=== PATIENT | female | born 1950 | race Caucasian/White ===

== ENCOUNTER 2019-10-04 13:09 | Emergency (ER) | payer MEDICARE, SELFPAY ==
[2019-10-04 13:32] VITALS: BP 161/83; PULSE 78; RESP 16; TEMP 37; O2SAT 99
--- NOTE | 2019-10-04 14:58 | ED.GENADULT ---
HPI - General Adult General Chief complaint: Upper Respiratory Infection Stated complaint: sore throat/steward Time Seen by Provider: 10/04/19 14:58 Source: patient and RN notes reviewed Mode of arrival: ambulatory Limitations: no limitations History of Present Illness HPI narrative: 69-year-old female presents with complaints of sore throat, loss of taste, head congestion, and intermittent headache (not the worst of her life) for the past 3 days. Advil congestion with little relief. No high fevers, drooling, neck or throat swelling. Pain is bilateral. Hurts to swallow. Exacerbation factors consist of swallowing, eating, and drinking. No rhinorrhea. Nasal congestion. No voice change. No nausea or vomiting, or abdominal pain. Tolerating liquids well. Denies chills, dyspnea, difficulty swallowing, jaw pain, dental pain, facial pain, foreign body sensation, and rash. Remains active. The patient reports she have not been diagnosed with COVID-19. The patient reports she is not waiting for the results of a COVID-19 lab test. The patient reports she do not have fever, chills, weakness, fatigue, myalgia, or facial swelling. The patient reports she do not have a new or worsening cough or shortness of breath. Denies chest pain. The patient reports she do not have any rhinorrhea, abdominal pain, and diarrhea. Denies recent traveling. Denies concerns for COVID-19 or exposures. At this time, patient is not suspected of having COVID-19. Some parts of this dictation were generated by voice recognition software and may contain typographical and/or grammatical inaccuracies. Related Data Home Medications Medication Instructions Recorded Confirmed oxybutynin chloride 5 mg 5 mg PO DAILY 01/02/19 10/04/19 tablet,extended release 24 hr Allergies Allergy/AdvReac Type Severity Reaction Status Date / Time Penicillins Allergy Unknown Rash Verified 10/04/19 14:28 Review of Systems Review of Systems: Narrative: CONSTITUTIONAL: Denies fever, chills, sweats. EYES: Denies visual changes, redness, discharge. ENT: Denies rhinorrhea, otalgia. Complains of sore throat, congestion, loss of taste. CARDIOVASCULAR: Denies chest pain, palpitations, edema. RESPIRATORY: Denies dyspnea, wheezing, cough. GASTROINTESTINAL: Denies abdominal pain, nausea, vomiting, diarrhea. GENITOURINARY: Denies dysuria, hematuria, abnormal discharge. SKIN: Denies rash or itching. MUSCULOSKELETAL: Denies acute back pain, joint pain, or myalgia. NEUROLOGIC: Denies numbness or focal weakness. PSYCHIATRIC: Denies anxiety or depression. All systems reviewed & are unremarkable except as noted in HPI and below. [facility] Past Medical History Medical History (Updated 10/04/19 @ 16:04 by RICARDO Arellano) Hyperlipidemia, unspecified Menopause OAB (overactive bladder) 10/09/2018 Osteoporosis Vitamin D deficiency Surgical History Surgical History H/O heart surgery Family History Family History (Updated 10/04/19 @ 16:05 by RICARDO Arellano) Father Carcinoma of colon Mother Family history of malignant neoplasm of breast in first degree relative Social History Social History (Updated 10/04/19 @ 16:05 by RICARDO Arellano) Smoking status: Never smoker Second hand tobacco smoke exposure: No Alcohol intake: current Substance use: never Substance use type: does not use Occupation/Education: retired Gender identity (if verbalized by the patient): Female Comments At time of signature, agree with nurse past medical, surgical, social, and family history. There is no relevant family history pertinent to the presenting complaint. Exam Narrative: Exam Narrative: GENERAL: This is a well-nourished, well-developed patient, in no apparent distress. Speaks in full sentences without deficits and ambulates with steady gait without dyspnea. HEAD: normocephalic,
[2019-10-04 15:28] VITALS: BP 152/89
== END 2019-10-04 15:28 | disposition home or self-care (01) ==
PROVIDERS: Emergency Provider Nurse Practitioner Family; PCP Family Medicine
DX: J01.90 Acute sinusitis, unspecified (principal); J02.9 Acute pharyngitis, unspecified; Z20.828 Contact with and (suspected) exposure to other viral communicable diseases; E78.5 Hyperlipidemia, unspecified; M81.0 Age-related osteoporosis without current pathological fracture
CPT/HCPCS: 87081; 87804; 87880; 99213; G0463

== ENCOUNTER 2019-10-05 06:47 | Outpatient (NON) | payer MEDICARE, SELFPAY ==
[2019-10-05 19:35] LABS: SARS-CoV-2 RNA PCR Positive
== END 2019-10-05 06:48 ==
PROVIDERS: PCP Family Medicine; Visit Provider Nurse Practitioner Family
DX: J02.9 Acute pharyngitis, unspecified (principal); R51 Headache; U07.1 COVID-19
CPT/HCPCS: 87635; C9803; U0003

== ENCOUNTER → 2020-05-06 00:12 | Outpatient (CLI) | payer MEDICARE, SELFPAY ==
[2020-05-06 17:44] LABS: SARS-CoV-2 RNA PCR Negative
== END ==
PROVIDERS: PCP Obstetrics & Gynecology; Visit Provider Internal Medicine Gastroenterology
DX: Z01.812 Encounter for preprocedural laboratory examination (principal); Z20.822 Contact with and (suspected) exposure to COVID-19
CPT/HCPCS: C9803; U0003; U0005

== ENCOUNTER 2020-05-09 01:05 | Day surgery (SDC) | payer MEDICARE, SELFPAY ==
[2020-04-25 13:42] VITALS: BMI 22.6
[2020-05-09 06:52] VITALS: BP 147/59; PULSE 85; RESP 18; TEMP 36.4; O2SAT 98; BMI 22.0
[2020-05-09] MEDS: LACTATED RINGERS 1,000 ML 150 ML IV CONT (07:01)
--- NOTE | 2020-05-09 07:31 | WPDANESEPPF ---
Anes - Initial Pre Proc Eval Procedure: Operation Date: 05/09/20 08:30 Proposed Procedures p Colonoscopy - Landon Mcclure MD Date/Time: 05/09/20 07:31 Surgeon: Landon Mcclure MD Pre Op Diagnosis: Blood In Stool Patient Data Age: 69 Gender: F Height: 5 ft 2 in Weight: 54.7 kg Last Vital Signs Temp 97.6 F 05/09/20 06:52 Pulse 85 05/09/20 06:52 Resp 18 05/09/20 06:52 BP 147/59 H 05/09/20 06:52 Pulse Ox 98 05/09/20 06:52 Allergies Allergy/AdvReac Type Severity Reaction Status Date / Time Penicillins Allergy Unknown Rash Verified 05/09/20 06:50 Home Medications Medication Instructions Recorded Confirmed Type oxybutynin chloride 5 mg 10 mg PO DAILY 01/02/19 05/09/20 History tablet,extended release 24 hr fluticasone propionate [Allergy 1 spray NASAL BID #16 ml 10/04/19 04/25/20 Rx Relief (fluticasone)] loratadine [Claritin] 10 mg PO DAILY 30 Days #30 tablet 10/04/19 04/25/20 Rx sodium,potassium,mag sulfates 17.5 See Rx Instructions PO .COMPLEX 03/31/20 Rx gram-3.13 gram-1.6 gram oral soln #354 ml Patient hx anesthesia problems: none Family hx anesthesia problems: none PMFSH Past Medical History Medical History (Updated 10/05/19 @ 00:00 by Background Datrinity) Hyperlipidemia, unspecified Menopause OAB (overactive bladder) 10/09/2018 Osteoporosis Vitamin D deficiency Surgical History Surgical History H/O heart surgery Family History Family History (Updated 10/04/19 @ 16:05 by RICARDO Arellano) Father Carcinoma of colon Mother Family history of malignant neoplasm of breast in first degree relative Social History Social History (Updated 10/04/19 @ 16:05 by RICARDO Arellano) Smoking status: Never smoker Second hand tobacco smoke exposure: No Alcohol intake: current Substance use: never Substance use type: does not use Living arrangements: with family Gender identity (if verbalized by the patient): Female Sexual Orientation (if Verbalized by the Patient): Straight or Heterosexual Spiritual care concerns: No Anes - Eval Final PreProcedure Day of Procedure 05/09/20 07:31 Patient weight: normal Heart: regular rate and rhythm Lungs: clear to auscultation Airway: Mallampati scale class II Neurological: alert and oriented Last oral intake: >/= 8 hours ASA classification: II Emergent: no Anesthetic plan: proceed Anesthesia type and monitoring: general GIVS and standard monitoring Informed Consent: The patient's anesthetic plan and its attendant risks and benefits were discussed with the patient/family/POA. Questions were solicited and answers provided to the satisfaction of the patient/family/POA.
--- NOTE | 2020-05-09 07:53 | PM.HPGS ---
History of Present Illness History of Present Illness Consent: Risks, benefits, and alternatives have been discussed and questions answered. Patient agrees to proceed with procedure. Chief complaint: Blood In Stool Narrative: Jory Herrera is a 69 year old female here for first screening colonoscopy Review of Systems Constitutional: Constitutional: Denies headache(s) and Denies weakness Eyes: Eyes: Denies blurry vision ENT: Reports Normal hearing present, Denies headache(s) and Denies neck pain Cardiovascular: Cardiovascular: Denies chest pain and Denies dyspnea Respiratory: Respiratory: Denies dyspnea Gastrointestinal: Gastrointestinal: Reports no additional gastrointestinal complaints Genitourinary: Genitourinary: Denies dysuria Musculoskeletal: Musculoskeletal: Denies neck pain Integumentary/Breasts: Skin/Breast: Denies dry skin Neurologic: Reports Normal hearing present, Denies headache(s) and Denies weakness Psychiatric: Psychiatric: Denies anxiety Endocrine: Endocrine: Denies change in body appearance Hematologic/Lymphatic: Hematologic/Lymphatic: Denies easy bleeding Allergic/Immunologic: Allergic/Immunologic: Denies urticaria PMFSH Past Medical History Medical History (Updated 05/09/20 @ 07:54 by Landon Mcclure MD) Colon cancer screening Hyperlipidemia, unspecified Menopause OAB (overactive bladder) 10/09/2018 Osteoporosis Vitamin D deficiency Surgical History Surgical History H/O heart surgery Family History Family History (Updated 10/04/19 @ 16:05 by RICARDO Arellano) Father Carcinoma of colon Mother Family history of malignant neoplasm of breast in first degree relative Social History Social History (Updated 10/04/19 @ 16:05 by RICARDO Arellano) Smoking status: Never smoker Second hand tobacco smoke exposure: No Alcohol intake: current Substance use: never Substance use type: does not use Living arrangements: with family Gender identity (if verbalized by the patient): Female Sexual Orientation (if Verbalized by the Patient): Straight or Heterosexual Spiritual care concerns: No Meds Home Medications and Allergies Home Medications Medication Instructions Recorded Confirmed Type oxybutynin chloride 5 mg 10 mg PO DAILY 01/02/19 05/09/20 History tablet,extended release 24 hr fluticasone propionate [Allergy 1 spray NASAL BID #16 ml 10/04/19 04/25/20 Rx Relief (fluticasone)] loratadine [Claritin] 10 mg PO DAILY 30 Days #30 tablet 10/04/19 04/25/20 Rx sodium,potassium,mag sulfates 17.5 See Rx Instructions PO .COMPLEX 03/31/20 Rx gram-3.13 gram-1.6 gram oral soln #354 ml Allergies Allergy/AdvReac Type Severity Reaction Status Date / Time Penicillins Allergy Unknown Rash Verified 05/09/20 06:50 Vital Signs Vital Signs - 24 hr 05/09/20 06:52 Temperature 97.6 F Pulse Rate 85 Respiratory Rate 18 Blood Pressure 147/59 H Pulse Oximetry 98 Exam Const: General: comfortable and no acute distress HENMT: General nose exam: Normal nares present Eyes: General: appearance normal, both eyes and all related structures Neck: Neck: no JVD Resp: Auscultation: clear to auscultation bilaterally Cardio: Rate: regular rate Rhythm: regular rhythm GI: Inspection: non-distended GI Palp: Yes Soft to palpation Skin: General skin exam: normal color Neuro: General: gait normal Speech: normal speech Extrem: General: normal to inspection Psych: Mental Status: mental status grossly normal Assessment and Plan Assessment and plan (1) Colon cancer screening: Code(s): Z12.11 - Encounter for screening for malignant neoplasm of colon Status: Acute Assessment and Plan: proceed with colonoscopy
[2020-05-09 08:06] VITALS: BP 126/75; PULSE 81; RESP 16; O2SAT 98
[2020-05-09 08:16] VITALS: BP 124/71; PULSE 80; RESP 17; O2SAT 97
[2020-05-09 08:26] VITALS: BP 126/74; PULSE 80; RESP 18; O2SAT 96
[2020-05-09 08:36] VITALS: BP 145/79; PULSE 67; RESP 19; O2SAT 99
== END 2020-05-09 08:39 | disposition home or self-care (01) ==
PROVIDERS: PCP Obstetrics & Gynecology; Visit Provider Internal Medicine Gastroenterology
PROC: 0DJD8ZZ Inspection of Lower Intestinal Tract, Via Natural or Artificial Opening Endoscopic (ICD-10-PCS; CPT 45378; principal; 2020-05-09 08:30)
DX: Z12.11 Encounter for screening for malignant neoplasm of colon (principal); D12.5 Benign neoplasm of sigmoid colon; D12.3 Benign neoplasm of transverse colon; K92.1 Melena; K64.8 Other hemorrhoids; N32.81 Overactive bladder; K64.4 Residual hemorrhoidal skin tags; M81.0 Age-related osteoporosis without current pathological fracture; E55.9 Vitamin D deficiency, unspecified; E78.5 Hyperlipidemia, unspecified
CPT/HCPCS: 45385; 45380; 88305; J2704; J7120

== ENCOUNTER 2021-02-11 08:41 | Emergency (ER) | payer MEDICARE, SELFPAY ==
--- NOTE | ~2021-02-11 | CT_ITS ---
EXAMINATION: CT brain wo con DATE: 02/11/2021 10:50 INDICATION: Dizziness. Head pressure. TECHNIQUE: Computed tomography (CT) of the head was performed without intravenous contrast. The mA wa s adjusted according to patient size. Iterative reconstruction technique was employed. The dose-lengt h product was 529.67 mGy-cm. COMPARISON: None FINDINGS: There is no intracranial hemorrhage, acute infarction, or abnormal intracranial mass lesion . The ventricles are normal in size. The orbits are normal. There is mild mucosal thickening in the p aranasal sinuses. The mastoid air cells are normal. IMPRESSION: 1. Normal brain. Reviewed, dictated and finalized at location A. R WATER HEATER INSTALLER IMPRESSION: 1. Normal brain.
--- NOTE | ~2021-02-11 | XR_ITS ---
EXAMINATION: XR chest 2V DATE: 02/11/2021 10:53 INDICATION: Dizziness. Hypertension. TECHNIQUE: Frontal and lateral views of the chest were obtained. COMPARISON: None. FINDINGS: There is mild atelectasis in right lower lung zone. Calcified pulmonary nodules are consist ent with old granulomatous disease. No pleural effusion or pneumothorax. The heart size is normal. Me shauna sternotomy wires are noted. IMPRESSION: 1. Mild atelectasis in right lower lung zone. Reviewed, dictated and finalized at location A. HASING/RECEIVING
[2021-02-11 08:48] VITALS: BP 183/76; PULSE 84; RESP 16; TEMP 36.6; O2SAT 100
--- NOTE | 2021-02-11 10:11 | ECG_ITS ---
Measurements Intervals [place] Rate: 80 P: 73 MO: 229 QRS: -36 QRSD: 130 T: 3 QT: 434 QTc: 503 Interpretive Statements SINUS RHYTHM WITH FIRST DEGREE AV BLOCK LEFT AXIS DEVIATION RIGHT BUNDLE BRANCH BLOCK ABNORMAL ECG Electronically Signed On 02-11-2021 13:30:58 OPHTHALMIC MEDICAL ASSISTANT by Ralph Avila D.O.
--- NOTE | 2021-02-11 10:32 | ED.RECABL ---
HPI - Recheck/Abnormal Lab/Rx General Chief Complaint: Recheck/Abnormal Lab/Rx Stated Complaint: High blood pressure/ dizzy Time Seen by Provider: 02/11/21 10:08 Source: patient Mode of arrival: ambulatory Limitations: no limitations History of Present Illness HPI narrative: This is a 70 year old female that presents to the ER for dizziness. Ongoing for the last week. Reports intermittently upon standing she has dizziness associated with nausea. Also reports mild headaches. Reports due to her symptoms she has been taking her blood pressure the last couple of days and it has been elevated. She does not have known history of hypertension. Although she does report she does not currently have a primary care doctor. Denies chest pain or shortness of breath. Related Data Home Medications Medication Instructions Recorded Confirmed oxybutynin chloride 5 mg 10 mg PO DAILY 01/02/19 05/09/20 tablet,extended release 24 hr Allergies Allergy/AdvReac Type Severity Reaction Status Date / Time Penicillins Allergy Unknown Rash Verified 02/11/21 10:14 Review of Systems Review of Systems: CONSTITUTIONAL: Denies fever EYES: Denies visual changes CARDIOVASCULAR: Denies chest pain or edema. RESPIRATORY: Denies dyspnea. GASTROINTESTINAL: Denies vomiting NEUROLOGIC: Reports headache. Denies numbness, or weakness. All systems reviewed & are unremarkable except as noted in HPI and below PMFSH Past Medical History Medical History (Updated 02/11/21 @ 12:25 by Rena Pink PA-C) Colon cancer screening Hyperlipidemia, unspecified Menopause OAB (overactive bladder) 10/09/2018 Osteoporosis Vitamin D deficiency Surgical History Surgical History H/O heart surgery Family History Family History (Updated 10/04/19 @ 16:05 by RICARDO Arellano) Father Carcinoma of colon Mother Family history of malignant neoplasm of breast in first degree relative Social History Social History (Updated 10/04/19 @ 16:05 by RICARDO Arellano) Smoking status: Never smoker Second hand tobacco smoke exposure: No Alcohol intake: current Alcohol use details: 2 beers consumed weekly Substance use: never Substance use type: does not use Gender identity (if verbalized by the patient): Female Sexual Orientation (if Verbalized by the Patient): Straight or Heterosexual Spiritual care concerns: No Exam Narrative: GENERAL: Well-appearing, well-nourished, and in no acute distress. HEAD: Normocephalic, atraumatic. EYES: PERRLA and EOMI. ENT: Nares clear, no rhinorrhea or epistaxis. Mucous membranes moist. Oropharynx without tonsillar hypertrophy exudate or other lesions. Bilateral TMs pearly garay non-bulging NECK: Supple. No adenopathy or masses. No carotid bruits or JVD CHEST: Clear to auscultation. No respiratory distress. No wheezes rales or rhonchi HEART: Regular rate and rhythm. No murmur heard. Normal peripheral pulses. EXTREMITIES: Normal range of motion. No edema. SKIN: Warm, dry, no rash. NEURO: No focal deficits. Alert and oriented x3. Cranial nerves II through XII grossly intact. Normal [id number] PSYCH: Normal mood and affect Course Consultations Consultation #1: Spoke with Dr. Pereira about patient and work-up. Would like patient started on lisinopril daily and will follow up in clinic Date: 02/11/21 Time: 12:27 Vital Signs Vital signs: Vital Signs Temperature 98 F 02/11/21 08:48 Pulse Rate 84 02/11/21 08:48 Respiratory Rate 16 02/11/21 08:48 Blood Pressure 183/76 H 02/11/21 08:48 Pulse Oximetry 100 02/11/21 08:48 Temperature 98 F 02/11/21 08:48 Pulse Rate 89 02/11/21 10:55 Respiratory Rate 13 02/11/21 10:55 Blood Pressure 174/87 H 02/11/21 10:55 Pulse Oximetry 98 02/11/21 10:55 MDM - Recheck/Abnormal Lab/Rx MDM Narrative Medical decision making narrative: Patient presents to the [facility]
--- NOTE | 2021-02-11 10:42 | PC.NURSE ---
pt to CT and xray at this time.
[2021-02-11 10:55] VITALS: BP 174/87; PULSE 89; RESP 13; O2SAT 98
[2021-02-11] MEDS: ACETAMINOPHEN 500 MG TABLET 1000 MG PO (10:59)
[2021-02-11] MEDS: LABETALOL HCL INJ 100 MG/20 ML VIAL 20 MG IV PUSH (10:59)
[2021-02-11] MEDS: MECLIZINE HCL 25 MG TABLET PO (11:00)
[2021-02-11 11:06] LABS: Basophils Percent Auto 0.4 % (0.2-1.2); Eosinophils Percent Auto 0.3 % (0-4.4); Hematocrit 47.3 % (37.0-47.0); Hemoglobin 15.7 g/dL (12.0-15.0); Immature Granulocyte Absolute 0.02 K/mm3 (0.00-0.031); Immature Granulocyte Percent A 0.3 % (0-0.5); Lymphocytes Absolute Auto 1.02 K/mm3 (0.9-3.2); Lymphocytes Percent Auto 14.9 % (18.3-44.2); Mean Corpuscular HGB Conc 33.2 g/dl (32-36); Mean Corpuscular Hemoglobin 28.4 pg (26-34); Mean Corpuscular Volume 85.7 fl (80-100); Mean Platelet Volume 10.4 fl (7.4-10.4); Monocytes Absolute Auto 0.3 K/mm3 (0.1-0.6); Monocytes Percent Auto 4.4 % (2.6-8.5); Neutrophils Absolute Auto 5.4 K/mm3 (1.3-6.7); Neutrophils Percent Auto 79.7 % (45.5-73.1); Platelet Count Result 159 k/mm3 (150-375); Red Blood Count 5.52 M/mm3 (4.2-5.4); Red Cell Distribution Width 13.7 % (11.5-14.5); White Blood Count 6.8 K/mm3 (4.5-10.0)
[2021-02-11 11:18] LABS: Anion Gap 9 mmol/L (8-16); Blood Urea Nitrogen 16 mg/dL (7-17); Calcium 9.6 mg/dL (8.4-10.2); Carbon Dioxide 26 mmol/L (22-30); Chloride 104 mmol/L (98-107); Estimated CRCL calculation 60 ml/min; Estimated Glomerular Filt Rate > 60; Glucose 118 mg/dL (65-110); Potassium 3.9 mmol/L (3.4-5.0); Sodium 139 mmol/L (137-145)
[2021-02-11] MEDS: SODIUM CHLORIDE 0.9% IV 500 ML 999 ML IV CONT (11:33)
[2021-02-11 12:25] VITALS: BP 152/78; PULSE 68; RESP 20; O2SAT 99
[2021-02-11 12:44] VITALS: BP 134/70; PULSE 72; RESP 18; O2SAT 96
== END 2021-02-11 12:46 | disposition home or self-care (01) ==
PROVIDERS: Physician Assistant; Emergency Provider Emergency Medicine
DX: I10 Essential (primary) hypertension (principal); E78.5 Hyperlipidemia, unspecified
CPT/HCPCS: 36415; 70450; 71046; 80048; 85025; 93005; 96361; 96374; 99284; A9270; J7040

== ENCOUNTER 2021-08-29 09:53 | Outpatient (CLI) | payer MEDICARE, SELFPAY ==
[2021-08-29 18:43] LABS: Basophils Percent Auto 0.5 % (0.2-1.2); Eosinophils Percent Auto 0.6 % (0-4.4); Hematocrit 46.5 % (37.0-47.0); Hemoglobin 14.7 g/dL (12.0-15.0); Immature Granulocyte Absolute 0.02 K/mm3 (0.00-0.031); Immature Granulocyte Percent A 0.3 % (0-0.5); Lymphocytes Absolute Auto 0.92 K/mm3 (0.9-3.2); Mean Corpuscular HGB Conc 31.6 g/dl (32-36); Mean Corpuscular Hemoglobin 28.3 pg (26-34); Mean Corpuscular Volume 89.6 fl (80-100); Mean Platelet Volume 11.4 fl (7.4-10.4); Monocytes Absolute Auto 0.3 K/mm3 (0.1-0.6); Neutrophils Absolute Auto 5.2 K/mm3 (1.3-6.7); Neutrophils Percent Auto 79.6 % (45.5-73.1); Platelet Count Result 155 k/mm3 (150-375); Red Blood Count 5.19 M/mm3 (4.2-5.4); Red Cell Distribution Width 13.3 % (11.5-14.5); White Blood Count 6.6 K/mm3 (4.5-10.0)
[2021-08-29 18:50] LABS: Alanine Aminotransferase 24 U/L (6-35); Albumin Level 4.7 g/dL (3.5-5.1); Alkaline Phosphatase 75 U/L (38-126); Anion Gap 6 mmol/L (8-16); Aspartate Amino Transferase 32 U/L (14-36); Bilirubin,Total 0.6 mg/dL (0.2-1.3); Blood Urea Nitrogen 16 mg/dL (7-17); Calcium 9.6 mg/dL (8.4-10.2); Carbon Dioxide 31 mmol/L (22-30); Chloride 101 mmol/L (98-107); Cholesterol 195 mg/dL (0-200); Estimated Glomerular Filt Rate > 60; Glucose 112 mg/dL (65-110); HDL Direct 61 mg/dL; Potassium 4.7 mmol/L (3.4-5.0); Sodium 138 mmol/L (137-145); Triglycerides 133 mg/dL (<150)
[2021-08-29 19:01] LABS: LDL Cholesterol Direct 91 mg/dL
[2021-08-29 20:06] LABS: Vitamin D 25 Hydroxy 30.4 ng/mL
== END 2021-08-29 09:54 | disposition home or self-care (01) ==
LOC: ANHGOSHLAB 09:58
PROVIDERS: PCP Family Medicine; Visit Provider Nurse Practitioner
DX: E55.9 Vitamin D deficiency, unspecified (principal); E78.5 Hyperlipidemia, unspecified; I10 Essential (primary) hypertension
CPT/HCPCS: 36415; 80053; 80061; 82306; 85025

== ENCOUNTER 2022-03-20 09:45 | Outpatient (CLI) | payer OTHER, SELFPAY ==
[2022-03-20 19:37] LABS: Alanine Aminotransferase 24 U/L (6-35); Albumin Level 4.5 g/dL (3.5-5.1); Alkaline Phosphatase 60 U/L (38-126); Anion Gap 2 mmol/L (8-16); Aspartate Amino Transferase 40 U/L (14-36); Bilirubin,Total 0.6 mg/dL (0.2-1.3); Blood Urea Nitrogen 20 mg/dL (7-17); Calcium 9.5 mg/dL (8.4-10.2); Carbon Dioxide 31 mmol/L (22-30); Chloride 102 mmol/L (98-107); Cholesterol 224 mg/dL (0-200); Estimated Glomerular Filt Rate > 60; Glucose 99 mg/dL (65-110); HDL Direct 63 mg/dL; Potassium 4.5 mmol/L (3.4-5.0); Sodium 135 mmol/L (137-145); Triglycerides 175 mg/dL (<150)
[2022-03-20 19:48] LABS: LDL Cholesterol Direct 107 mg/dL
[2022-03-20 20:32] LABS: Basophils Percent Auto 0.4 % (0.2-1.2); Eosinophils Absolute Auto 0.1 K/mm3 (0-0.3); Eosinophils Percent Auto 1.1 % (0-4.4); Hematocrit 45.2 % (37.0-47.0); Hemoglobin 14.5 g/dL (12.0-15.0); Immature Granulocyte Absolute 0.01 K/mm3 (0.00-0.031); Immature Granulocyte Percent A 0.2 % (0-0.5); Lymphocytes Absolute Auto 1.08 K/mm3 (0.9-3.2); Lymphocytes Percent Auto 19.1 % (18.3-44.2); Mean Corpuscular HGB Conc 32.1 g/dl (32-36); Mean Corpuscular Hemoglobin 28.7 pg (26-34); Mean Corpuscular Volume 89.3 fl (80-100); Mean Platelet Volume 11.2 fl (7.4-10.4); Monocytes Absolute Auto 0.3 K/mm3 (0.1-0.6); Monocytes Percent Auto 5.3 % (2.6-8.5); Neutrophils Absolute Auto 4.2 K/mm3 (1.3-6.7); Neutrophils Percent Auto 73.9 % (45.5-73.1); Platelet Count Result 164 k/mm3 (150-375); Red Blood Count 5.06 M/mm3 (4.2-5.4); Red Cell Distribution Width 14.2 % (11.5-14.5); White Blood Count 5.7 K/mm3 (4.5-10.0)
== END 2022-03-20 09:46 | disposition home or self-care (01) ==
LOC: ANHGOSHLAB 09:46
PROVIDERS: PCP Family Medicine; Visit Provider Nurse Practitioner
DX: E78.5 Hyperlipidemia, unspecified (principal); I10 Essential (primary) hypertension
CPT/HCPCS: 36415; 80053; 80061; 85025

== ENCOUNTER → 2022-04-10 10:44 | Outpatient (CLI) | payer OTHER, SELFPAY ==
--- NOTE | ~2022-04-10 | DEXA_ITS ---
Bone Density Report Name: FARRAH DARBY Age: 71 Sex: Female Ethnicity: White Date of : 1950 Indication: postmenopausal osteoporosis; Referring Provider: Kavitha Patrick Study: Bone densitometry was performed. Exam Date: April 10, 2022 Accession number: [id number] Bone Density: Region BMD T-score Z-score Classification AP Spine (L1-L4) 0.708 -3.1 -1.0 Osteoporosis Femoral Neck (Left) 0.590 -2.3 -0.6 Osteopenia Total Hip (Left) 0.682 -2.1 -0.7 Osteopenia Femoral Neck (Right) 0.603 -2.2 -0.4 Osteopenia Total Hip (Right) 0.723 -1.8 -0.3 Osteopenia Total Hip Mean 0.703 -2.0 -0.5 Osteopenia World Health Organization criteria for BMD impression classify patients as: Normal (T-score at or above -1.0), Osteopenia (T-score between -1.0 and -2.5), or Osteoporosis (T-score at or below -2.5). 10-year Fracture Risk: FRAX not reported because: Some T-score for Spine Total or Hip Total or Femoral Neck at or below -2.5 Previous Exams: Region Exam Age BMD T-score BMD Change BMD Change Date g/cm2 vs Baseline vs Previous AP Spine(L1-L4) 04/10/2022 71 0.708 -3.1 -0.014 0.045* 06/20/2018 67 0.663 -3.5 -0.059* -0.059* 03/24/2007 56 0.721 -3.0 Total Hip(Left) 04/10/2022 71 0.682 -2.1 0.023 0.013 06/20/2018 67 0.669 -2.2 0.009 0.009 03/24/2007 56 0.659 -2.3 Total Hip(Right) 04/10/2022 71 0.723 -1.8 0.014 0.009 06/20/2018 67 0.714 -1.9 0.005 0.005 03/24/2007 56 0.708 -1.9 *Denotes significance at 95% confidence level, LSC for AP Spine = 0.022 g/cm2, LSC for Total Hip = 0.027 g/cm2 Clinical Information Provided by Patient: Has used the following medications: Fosamax (i.e. alendronate) Patient maximum height was 61 Menopause Age: 52 Drinks caffeinated beverages Onset of menses at age 14 Number of children 2 Impression: The patient has osteoporosis, based on the Total Spine T-score. No significant bone loss was observed. Discussion: INCREASED RISK OF FRACTURE. BONE DENSITY IS UNDESIRABLY LOW AT ONE OR MORE SKELETAL SITES, CONSISTENT WITH POSTMENOPAUSAL OSTEOPOROSIS. This patient's lowest T-score meets the World Health Organization's (WHO) criteria for osteoporosis at one or more sites (T-score -2.5 or below). In untreated patients, the risk of osteoporotic fracture increases approximately two-fold for each 1.0 SD de
--- NOTE | ~2022-04-10 | MM_ITS ---
EXAMINATION: MM screening gisela BI w roque HISTORY: Screening mammogram TECHNIQUE: Craniocaudal and mediolateral oblique 3-D tomosynthesis images were obtained and synthetic 2-D images were generated. CAD analysis was submitted and interpreted. COMPARISON: 06/06/2018 bilateral screening mammogram BREAST PARENCHYMAL COMPOSITION: The breasts are heterogeneously dense, which may obscure small masses . FINDINGS: There is no evidence of suspicious mass, calcification, or architectural distortion to sugg est malignancy in either breast. There has been no suspicious interval change. IMPRESSION: 1. No mammographic evidence of malignancy. 2. Recommend routine screening mammography in one year. BI-RADS Category 1: Negative Reviewed, dictated and finalized at location A. REGULATORY AFFAIRS SPECIALIST
== END ==
PROVIDERS: PCP Nurse Practitioner; Visit Provider Nurse Practitioner
DX: Z12.31 Encounter for screening mammogram for malignant neoplasm of breast (principal); Z78.0 Asymptomatic menopausal state; M81.6 Localized osteoporosis [Lequesne]; M85.89 Other specified disorders of bone density and structure, multiple sites
CPT/HCPCS: 77063; 77067; 77080

== ENCOUNTER 2022-05-18 09:37 | Emergency (ER) | payer OTHER, SELFPAY ==
[2022-05-18] VITALS (32 sets, daily range): BP systolic 134–169; BP diastolic 66–90; PULSE 52–72; RESP 12–23; TEMP 36.9; O2SAT 90–100
--- NOTE | 2022-05-18 11:07 | ECG_ITS ---
Measurements Intervals [place] Rate: 61 P: ME: 0 QRS: -48 QRSD: 131 T: -4 QT: 465 QTc: 471 Interpretive Statements UNCERTAIN REGULAR RHYTHM RIGHT BUNDLE BRANCH BLOCK LEFT ANTERIOR FASCICULAR BLOCK ABNORMAL ECG COMPARED TO ECG 02/11/2021 10:16:58 LEFT ANTERIOR FASCICULAR BLOCK NOW PRESENT Electronically Signed On 05-19-2022 14:52:51 CDT by Milad Knox M.D.
[2022-05-18 11:42] LABS: Basophils Percent Auto 0.4 % (0.2-1.2); Eosinophils Percent Auto 0.6 % (0-4.4); Immature Platelet Fraction Pct 13.3 % (0.9-11.2); Lymphocytes Absolute Auto 0.75 K/mm3 (0.9-3.2); Mean Corpuscular HGB Conc 32.6 g/dl (32-36); Mean Corpuscular Hemoglobin 28.6 pg (26-34); Mean Corpuscular Volume 87.8 fl (80-100); Mean Platelet Volume 12.4 fl (7.4-10.4); Monocytes Absolute Auto 0.2 K/mm3 (0.1-0.6); Monocytes Percent Auto 4.7 % (2.6-8.5); Neutrophils Absolute Auto 3.7 K/mm3 (1.3-6.7); Neutrophils Percent Auto 78.3 % (45.5-73.1); Platelet Count Result 113 k/mm3 (150-375); Red Blood Count 5.24 M/mm3 (4.2-5.4); Red Cell Distribution Width 14.4 % (11.5-14.5); White Blood Count 4.7 K/mm3 (4.5-10.0)
[2022-05-18] MEDS: ONDANSETRON INJ 4 MG/2 ML VIAL IV PUSH (12:44)
[2022-05-18 12:57] LABS: Alanine Aminotransferase 46 U/L (6-35); Albumin Level 4.4 g/dL (3.5-5.1); Alkaline Phosphatase 62 U/L (38-126); Anion Gap 6 mmol/L (8-16); Aspartate Amino Transferase 34 U/L (14-36); Bilirubin,Total 0.8 mg/dL (0.2-1.3); Blood Urea Nitrogen 14 mg/dL (7-17); Calcium 9.6 mg/dL (8.4-10.2); Carbon Dioxide 29 mmol/L (22-30); Chloride 106 mmol/L (98-107); Estimated CRCL calculation 49 ml/min; Estimated Glomerular Filt Rate > 60; Glucose 105 mg/dL (65-110); Potassium 4.1 mmol/L (3.4-5.0); Sodium 141 mmol/L (137-145)
--- NOTE | 2022-05-18 13:52 | ED.GENADULT ---
HPI - General Adult General Chief complaint: Recheck/Abnormal Lab/Rx Stated complaint: high blood pressure Time Seen by Provider: 05/18/22 12:04 Source: patient and RN notes reviewed Mode of arrival: ambulatory Limitations: no limitations History of Present Illness HPI narrative: THis is a 71 year old female with history of hypertension who presents for evaluation of nausea. PAtient states starting last night she felt nausea and lightheaded . She checked her blood pressure and it was systolic 170s. She took her lisinopril 20 mg this morning at 630 am. She reports mild headache 5/10. She denies blurred vision, focal deficits, numbness or tingling. She denies chest pain, shortness of breath, abdominal pain or diarrhea. She has not taken any medication for her headache. She denies coronary artery disease or history of stroke. Related Data Home Medications Medication Instructions Recorded Confirmed oxybutynin chloride 5 mg 10 mg PO DAILY 01/02/19 04/18/22 tablet,extended release 24 hr (Ditropan XL) alendronate 70 mg tablet 70 mg PO WEEKLY 03/20/22 04/18/22 Allergies Allergy/AdvReac Type Severity Reaction Status Date / Time Penicillins Allergy Unknown Rash Verified 05/18/22 09:50 Review of Systems Constitutional: Constitutional: Denies weakness Cardiovascular: Cardiovascular: Denies syncope, Denies rapid heart rate, Denies irregular heart rhythm, Denies leg edema and Denies dyspnea Respiratory: Respiratory: Denies chest congestion, Denies hemoptysis, Denies excessive phlegm production and Denies dyspnea Gastrointestinal: Gastrointestinal: Denies abdominal pain, Denies hematochezia, Denies diarrhea, Reports nausea and Denies vomiting Genitourinary: Genitourinary: Denies hematuria and Denies dysuria Musculoskeletal: Musculoskeletal: Denies joint swelling, Denies loss of height and Denies muscle weakness Neurologic: Denies syncope, Reports headache(s), Denies focal weakness and Denies weakness PMFSH Past Medical History Medical History Hyperlipidemia, unspecified Menopause OAB (overactive bladder) 10/09/2018 Osteoporosis Vitamin D deficiency Surgical History Surgical History H/O heart surgery Family History Family History Father Carcinoma of colon Mother Family history of malignant neoplasm of breast in first degree relative Social History Social History Social History: Caffeine- coffee daily Smoking status: Never smoker Second hand tobacco smoke exposure: No Alcohol intake: current Alcohol use details: 2 beers consumed weekly Substance use: never Substance use type: does not use Lack of Transportation: No Lack of Food: Never True Current Housing: I Have Housing Concerned About Future Housing: No Difficulty Paying Gas/Electric Bills: No Difficulty Paying for Meds: No Currently Unemployed: No Education: High School Diploma/GED Difficulty w/ Childcare or Family Care: No Living arrangements: with family Occupation/Education: retired Gender identity (if verbalized by the patient): Female Sexual Orientation (if Verbalized by the Patient): Straight or Heterosexual Spiritual care concerns: No Agree to blood products: Yes Exam Narrative: GENERAL: Well-appearing, well-nourished, and in no acute distress. HEAD: Normocephalic, atraumatic EYES: PERRLA and EOMI, conjunctiva clear without discharge EARS: TM's clear bilaterally without erythema or dullness NOSE: Nares clear, no rhinorrhea or epistaxis THROAT:Mucous membranes moist, Oropharynx normal without erythema, exudate, peritonsillar swelling or fluctuance NECK: Supple, without lymphadenopathy or mass RESPIRATORY: No respiratory distress, Airway patent,
== END 2022-05-18 15:27 | disposition home or self-care (01) ==
PROVIDERS: Emergency Medicine; Emergency Provider General Practice; PCP Nurse Practitioner
DX: R11.0 Nausea (principal); I10 Essential (primary) hypertension; E78.5 Hyperlipidemia, unspecified; E55.9 Vitamin D deficiency, unspecified; N32.81 Overactive bladder; M81.0 Age-related osteoporosis without current pathological fracture; I45.2 Bifascicular block
CPT/HCPCS: 36415; 80053; 85025; 85055; 93005; 96365; 96375; 99284; J0131; J2405

== ENCOUNTER → 2022-07-06 08:05 | Outpatient (CLI) | payer OTHER, SELFPAY ==
--- NOTE | ~2022-07-06 | CT_ITS ---
EXAMINATION: CT brain wo con DATE: 07/06/2022 08:25 INDICATION: Dizziness and giddiness TECHNIQUE: Computed tomography (CT) of the abdomen and pelvis was performed without intravenous contr ast. The dose-length product was 524.62 mGy-cm. Automated exposure control and iterative reconstructi on technique were employed. COMPARISON: CT dated 02/11/2021 FINDINGS: Brain parenchymal volume is normal. There are scattered mild periventricular and subcortica l white matter changes, most likely related to small vessel ischemic disease (microangiopathy). No ac [place] intracranial hemorrhage, infarction, mass or mass effect. Paranasal sinuses and mastoids are pneu matized. No depressed skull fractures. IMPRESSION: 1. No acute intracranial abnormality. Reviewed, dictated and finalized at location B.
== END ==
PROVIDERS: PCP Nurse Practitioner; Visit Provider Nurse Practitioner
DX: R42 Dizziness and giddiness (principal)
CPT/HCPCS: 70450

== ENCOUNTER 2022-10-03 10:55 | Outpatient (CLI) | payer OTHER, SELFPAY ==
[2022-10-03 19:05] LABS: Alanine Aminotransferase 25 U/L (6-35); Albumin Level 4.8 g/dL (3.5-5.1); Alkaline Phosphatase 62 U/L (38-126); Anion Gap 5 mmol/L (8-16); Aspartate Amino Transferase 31 U/L (14-36); Bilirubin,Total 0.6 mg/dL (0.2-1.3); Blood Urea Nitrogen 17 mg/dL (7-17); Calcium 9.9 mg/dL (8.4-10.2); Carbon Dioxide 32 mmol/L (22-30); Chloride 104 mmol/L (98-107); Cholesterol 235 mg/dL (0-200); Estimated Glomerular Filt Rate > 60; Glucose 98 mg/dL (65-110); HDL Direct 72 mg/dL; Potassium 4.7 mmol/L (3.4-5.0); Sodium 141 mmol/L (137-145); Triglycerides 122 mg/dL (<150)
[2022-10-03 19:06] LABS: Basophils Percent Auto 0.3 % (0.2-1.2); Eosinophils Absolute Auto 0.1 K/mm3 (0-0.3); Eosinophils Percent Auto 0.8 % (0-4.4); Hematocrit 46.9 % (37.0-47.0); Hemoglobin 14.8 g/dL (12.0-15.0); Immature Granulocyte Absolute 0.02 K/mm3 (0.00-0.031); Immature Granulocyte Percent A 0.3 % (0-0.5); Lymphocytes Absolute Auto 1.17 K/mm3 (0.9-3.2); Lymphocytes Percent Auto 18.9 % (18.3-44.2); Mean Corpuscular HGB Conc 31.6 g/dl (32-36); Mean Corpuscular Hemoglobin 28.2 pg (26-34); Mean Corpuscular Volume 89.5 fl (80-100); Mean Platelet Volume 11.8 fl (7.4-10.4); Monocytes Absolute Auto 0.4 K/mm3 (0.1-0.6); Monocytes Percent Auto 6.1 % (2.6-8.5); Neutrophils Absolute Auto 4.6 K/mm3 (1.3-6.7); Neutrophils Percent Auto 73.6 % (45.5-73.1); Platelet Count Result 161 k/mm3 (150-375); Red Blood Count 5.24 M/mm3 (4.2-5.4); Red Cell Distribution Width 13.5 % (11.5-14.5); White Blood Count 6.2 K/mm3 (4.5-10.0)
[2022-10-03 19:15] LABS: LDL Cholesterol Direct 127 mg/dL
[2022-10-07 23:51] LABS: Vitamin D 1,25 (OH)2 Total 48 pg/mL (18-72); Vitamin D2 1,25 (OH)2 <8 pg/mL; Vitamin D3 1,25 (OH)2 48 pg/mL
== END 2022-10-03 10:56 | disposition home or self-care (01) ==
PROVIDERS: PCP Family Medicine; Visit Provider Nurse Practitioner Family
DX: I10 Essential (primary) hypertension (principal); E55.9 Vitamin D deficiency, unspecified
CPT/HCPCS: 36415; 80053; 80061; 82652; 85025

== ENCOUNTER 2023-04-03 09:08 | Outpatient (CLI) | payer OTHER, SELFPAY ==
[2023-04-03 13:37] LABS: Basophils Percent Auto 0.6 % (0.2-1.2); Eosinophils Absolute Auto 0.1 K/mm3 (0-0.3); Eosinophils Percent Auto 2.2 % (0-4.4); Hematocrit 46.1 % (37.0-47.0); Hemoglobin 14.2 g/dL (12.0-15.0); Immature Granulocyte Absolute 0.01 K/mm3 (0.00-0.031); Immature Granulocyte Percent A 0.2 % (0-0.5); Lymphocytes Absolute Auto 1.24 K/mm3 (0.9-3.2); Lymphocytes Percent Auto 24.6 % (18.3-44.2); Mean Corpuscular HGB Conc 30.8 g/dl (32-36); Mean Corpuscular Volume 90.7 fl (80-100); Monocytes Absolute Auto 0.3 K/mm3 (0.1-0.6); Monocytes Percent Auto 6.5 % (2.6-8.5); Neutrophils Absolute Auto 3.3 K/mm3 (1.3-6.7); Neutrophils Percent Auto 65.9 % (45.5-73.1); Platelet Count Result 154 k/mm3 (150-375); Red Blood Count 5.08 M/mm3 (4.2-5.4); Red Cell Distribution Width 13.7 % (11.5-14.5); White Blood Count 5.1 K/mm3 (4.5-10.0)
[2023-04-03 14:25] LABS: Alanine Aminotransferase 24 U/L (6-35); Albumin Level 4.5 g/dL (3.5-5.1); Alkaline Phosphatase 63 U/L (38-126); Anion Gap 4 mmol/L (8-16); Aspartate Amino Transferase 32 U/L (14-36); Bilirubin,Total 0.5 mg/dL (0.2-1.3); Blood Urea Nitrogen 20 mg/dL (7-17); Calcium 10.2 mg/dL (8.4-10.2); Carbon Dioxide 33 mmol/L (22-30); Chloride 101 mmol/L (98-107); Cholesterol 221 mg/dL (0-200); Estimated Glomerular Filt Rate > 60; Glucose 88 mg/dL (65-110); HDL Direct 71 mg/dL; Potassium 4.3 mmol/L (3.4-5.0); Sodium 138 mmol/L (137-145); Triglycerides 78 mg/dL (<150)
[2023-04-03 14:39] LABS: LDL Cholesterol Direct 118 mg/dL
[2023-04-06 15:18] LABS: Vitamin D 1,25 (OH)2 Total 45 pg/mL (18-72); Vitamin D2 1,25 (OH)2 <8 pg/mL; Vitamin D3 1,25 (OH)2 45 pg/mL
== END 2023-04-03 09:09 | disposition home or self-care (01) ==
LOC: ANHGOSHLAB 09:09
PROVIDERS: PCP Family Medicine; Visit Provider Nurse Practitioner Family
DX: E55.9 Vitamin D deficiency, unspecified (principal); I10 Essential (primary) hypertension
CPT/HCPCS: 36415; 80053; 80061; 82652; 85025

== ENCOUNTER 2023-09-24 10:11 | Outpatient (CLI) | payer OTHER, SELFPAY ==
--- NOTE | ~2023-09-24 | MM_ITS ---
EXAMINATION: MM screening [facility] BI w [place] HISTORY: Screening TECHNIQUE: Craniocaudal and mediolateral oblique 3-D tomosynthesis images were obtained and synthetic 2-D images were generated. CAD analysis was submitted and interpreted. COMPARISON: Comparison to multiple prior studies sequentially, with oldest reviewed study dated 06/06. BREAST PARENCHYMAL COMPOSITION: Not dense: There are scattered areas of fibroglandular density. FINDINGS: There is no evidence of suspicious mass, calcification, or architectural distortion to sugg est malignancy in either breast. There has been no suspicious interval change. IMPRESSION: 1. No mammographic evidence of malignancy. 2. Recommend routine screening mammography in one year. BI-RADS Category 1: Negative Reviewed, dictated and finalized at location B.
== END 2023-09-24 10:12 ==
PROVIDERS: PCP Nurse Practitioner Family; Visit Provider Nurse Practitioner Family
DX: Z12.31 Encounter for screening mammogram for malignant neoplasm of breast (principal)
CPT/HCPCS: 77063; 77067

== ENCOUNTER 2023-10-16 11:05 | Outpatient (CLI) | payer OTHER, SELFPAY ==
--- NOTE | ~2023-10-16 | CT_ITS ---
EXAMINATION: CT shoulder LT w con DATE: 10/16/2023 11:37 INDICATION: Left shoulder stiffness TECHNIQUE: High resolution computed tomography (CT) of the left shoulder was performed without intrav enous contrast. Additional sagittal and coronal reconstructions were performed. Automated exposure co ntrol and iterative reconstruction technique were employed. The dose-length product was 175.44 mGy-cm . COMPARISON: None FINDINGS: Bone alignment is normal. No fracture. Mild left acromioclavicular osteoarthritis. Glenohumeral joint space appears normal. No glenohumeral joint effusion or other abnormal fluid collections. No asymmet marlyn muscular atrophy of the left rotator cuff or shoulder girdle. No pathologically enlarged left-berenice ed axillary, hilar or mediastinal lymphadenopathy. Normal anatomic variant retroesophageal aberrant r ight subclavian artery arising from the normal caliber aortic arch. Respiratory motion and mild atele ctasis related to expiratory phase of imaging the visualized left lung. Calcified left lower lobe nod ules consistent with old granulomatous disease. IMPRESSION: 1. Mild left acromioclavicular osteoarthritis. Otherwise unremarkable left shoulder. 2. Normal anatomic variant retroesophageal aberrant right subclavian artery. Reviewed, dictated and finalized at location A. IMPRESSION: 1. Mild left acromioclavicular osteoarthritis. Otherwise unremarkable left shou lder. 2. Normal anatomic variant retroesophageal aberrant right subclavian artery.
[2023-10-16 11:25] LABS: Estimated Glomerular Filt Rate > 60
== END 2023-10-16 11:06 | disposition home or self-care (01) ==
PROVIDERS: PCP Nurse Practitioner; Visit Provider Nurse Practitioner
DX: M19.012 Primary osteoarthritis, left shoulder (principal)
CPT/HCPCS: 73201; Q9967

== ENCOUNTER 2023-12-09 08:55 | Outpatient (CLI) | payer OTHER, SELFPAY ==
[2023-12-09 18:30] LABS: Basophils Percent Auto 0.4 % (0.2-1.2); Eosinophils Absolute Auto 0.1 K/mm3 (0-0.3); Hematocrit 45.9 % (37.0-47.0); Hemoglobin 14.5 g/dL (12.0-15.0); Immature Granulocyte Absolute 0.01 K/mm3 (0.00-0.031); Immature Granulocyte Percent A 0.2 % (0-0.5); Lymphocytes Absolute Auto 1.19 K/mm3 (0.9-3.2); Lymphocytes Percent Auto 21.7 % (18.3-44.2); Mean Corpuscular HGB Conc 31.6 g/dl (32-36); Mean Corpuscular Hemoglobin 28.8 pg (26-34); Mean Corpuscular Volume 91.1 fl (80-100); Mean Platelet Volume 11.7 fl (7.4-10.4); Monocytes Absolute Auto 0.4 K/mm3 (0.1-0.6); Monocytes Percent Auto 6.4 % (2.6-8.5); Neutrophils Absolute Auto 3.8 K/mm3 (1.3-6.7); Neutrophils Percent Auto 69.3 % (45.5-73.1); Platelet Count Result 164 k/mm3 (150-375); Red Blood Count 5.04 M/mm3 (4.2-5.4); Red Cell Distribution Width 14.3 % (11.5-14.5); White Blood Count 5.5 K/mm3 (4.5-10.0)
[2023-12-09 18:38] LABS: Alanine Aminotransferase 20 U/L (6-35); Albumin Level 4.6 g/dL (3.5-5.1); Alkaline Phosphatase 56 U/L (38-126); Anion Gap 8 mmol/L (4-12); Aspartate Amino Transferase 34 U/L (14-36); Bilirubin,Total 0.6 mg/dL (0.2-1.3); Blood Urea Nitrogen 27 mg/dL (7-17); Calcium 9.6 mg/dL (8.4-10.2); Carbon Dioxide 30 mmol/L (22-30); Chloride 104 mmol/L (98-107); Cholesterol 211 mg/dL (0-200); Estimated Glomerular Filt Rate > 60; Glucose 110 mg/dL (65-110); HDL Direct 72 mg/dL; Potassium 4.7 mmol/L (3.4-5.0); Sodium 142 mmol/L (137-145); Triglycerides 120 mg/dL (<150)
[2023-12-09 18:49] LABS: LDL Cholesterol Direct 104 mg/dL
[2023-12-09 19:55] LABS: Folic Acid > 20.0 ng/mL (2.76->20); Vitamin D 25 Hydroxy 25.2 ng/mL
== END 2023-12-09 08:56 | disposition home or self-care (01) ==
PROVIDERS: PCP Nurse Practitioner Adult Health; Visit Provider Nurse Practitioner Adult Health
DX: R68.89 Other general symptoms and signs (principal); I10 Essential (primary) hypertension; E55.9 Vitamin D deficiency, unspecified
CPT/HCPCS: 36415; 80053; 80061; 82306; 82607; 82746; 84443; 85025

== ENCOUNTER 2024-01-15 09:15 | Outpatient (CLI) | payer OTHER, SELFPAY ==
--- NOTE | ~2024-01-15 | MR_ITS ---
MRI of the left shoulder Technique: Axial proton-density fat-sat images, coronal proton density fat-sat and T2 fat-sat images, and sagittal T1-weighted and T2 fat-sat images were acquired. Clinical History: Pain Findings: There is minimal AC joint degenerative change. Coracoclavicular, coracoacromial, and coraco humeral ligaments are intact. Supraspinatus and infraspinatus tendons there is a mild tendinosis. Possible focal very low-grade par tial thickness articular surface tear at the distal supraspinatus tendon insertion. No high-grade par tial or full-thickness tear seen. Subscapularis tendon is intact with mild to moderate tendinosis. Te ndon of the long head of the biceps is intact. Probable superior labral tear present. Inferior glenohumeral ligament is intact. No significant degenerative change or effusion of the gleno humeral joint. No fluid distention of the subacromial/subdeltoid bursa. No muscle atrophy or edema.. Impression: Probable superior labral tear. Possible focal very low-grade articular surface partial tear at the distal supraspinatus tendon inser tion. No high-grade partial or full-thickness rotator cuff tear. Mild background rotator cuff tendino sis. Reviewed, dictated and finalized at location . ORK/TELECOM ENGINEER Impression: Probable superior labral tear. Possible focal very low-grade articular surface partial tear at the distal supr aspinatus tendon insertion. No high-grade partial or full-thickness rotator cuf f tear. Mild background rotator cuff tendinosis.
== END 2024-01-15 09:16 | disposition home or self-care (01) ==
LOC: GOSHIMG 09:16
PROVIDERS: PCP Nurse Practitioner Adult Health; Visit Provider Nurse Practitioner Adult Health
DX: M75.32 Calcific tendinitis of left shoulder (principal)
CPT/HCPCS: 73221

== ENCOUNTER 2024-08-11 21:08 | Emergency (ER) | payer OTHER, SELFPAY ==
--- NOTE | ~2024-08-11 | US_ITS ---
RIGHT LOWER EXTREMITY VENOUS ULTRASOUND Ordering provider: Cele Levy MD History: . r/o DVT . Comparison: None. FINDINGS: --COMMON FEMORAL: Patent and free of thrombus. Normal compressibility, phasic flow and augmentation. --PROXIMAL SUPERFICIAL FEMORAL: Patent and free of thrombus. Normal compressibility, phasic flow and augmentation. --DISTAL SUPERFICIAL FEMORAL: Patent and free of thrombus. Normal compressibility, phasic flow and au gmentation. --POPLITEAL: Patent and free of thrombus. Normal compressibility, phasic flow and augmentation. --POSTERIOR TIBIAL: Patent and free of thrombus. Normal compressibility, phasic flow and augmentation . IMPRESSION: Negative right lower extremity venous US. No deep vein thrombosis. Reviewed, dictated and finalized at location A.
--- OUTSIDE RECORDS SUMMARY | 2024-08-11 21:09 | XMS_ITS | Clinical Summary ---
Author Organization [facility] Address [address] [place] [id number] Care Team Providers Care Leaf Coverer Name Role Phone Blanca Ruff Primary Care Provider [phone]- [phone] Allergies Active Allergy Reactions Criticality Noted Date Comments Penicillins Unknown 11/18/2018 Medications oxybutynin XL (DITROPAN-XL) 5 mg 24 hr tablet TK 1 T PO QD 0 09/26/2018 Active calcium citrate/vitamin D3 (CITRACAL REGULAR ORAL) Take by mouth Ac tive alendronate (FOSAMAX) 70 mg tablet Take 1 tablet (70 mg total) by mouth every 7 days Take in the morning with a full glass of water, on an empty stomach, and do not take anything else by mouth or lie down for the next 30 min. 4 tablet 11 12/15/2019 Active Active Problems Problem Noted Date Diagnosed Date Age-related osteoporosis wit hout current pathological fracture 11/18/2018 Menopausal state 11/18/2018 Family History Medical History Relation Name Comments No Known Problems Mother Relation Name Status Comments Mother Social History Tobacco Use Types Packs/Day Years Used Date Smoking Tobacco: Never Smokeless Tobacco: Never Personal Safety Answer Date Recorded Getting School Help Needed Not on file 04/27 Comments Unknown Sex and Gender Information Value Date Recorded Sex Assigned at Not on file Legal Sex Female 9:19 AM CDT Gender Identity Not on file Sexual Orientation Not on file Obstetrics History Last Filed Vital Signs Vital Sign Reading Time Taken Comments Blood Pressure 145/88 12/15/2019 8:12 AM ADMISSIONS SUPERVISOR Pulse 73 12/15/2019 8:12 AM ADMISSIONS SUPERVISOR Temperature 36.6 C (97.8 F) 12/15/2019 8:12 AM ADMISSIONS SUPERVISOR Respiratory Rate - - Oxygen Saturation - - Inhaled Oxygen Concentration - - Weight 55.2 kg (121 lb 9.6 oz) 12/15/2019 8:12 A M ADMISSIONS SUPERVISOR Height 154.2 cm (5' 0.7) 12/15/2019 8:12 AM ADMISSIONS SUPERVISOR Body Mass Index 23.2 12/15/2019 8:12 AM ADMISSIONS SUPERVISOR Plan of Treatment Not on file Insurance MEDICARE [facility] Care Teams Leaf Coverer Relationship Specialty Start Date End Date Blanca Ruff PA PCP - General Physician Auto Wash Buffer 07/25/18
--- OUTSIDE RECORDS SUMMARY | 2024-08-11 21:09 | XMS_ITS | Referral Summary ---
Author Organization [facility] Address [address] [place] [id number] Care Team Providers Care Privacy Manager Name Role Phone Blanca Ruff Primary Care Provider [phone]- [phone] Allergies Active Allergy Reactions Criticality Noted Date [...] current pathological fracture 11/18/2018 Menopausal state 11/18/2018 Social History Tobacco Use Types Packs/Day Years Used Date Smoking Tobacco: Never Smokeless Tobacco: Never Personal Safety Answer Date Recorded Getting School Help Needed Not on file 04/27 Comments Unknown Sex and Gender Information Value Date Recorded Sex Assigned at Not on file Legal Sex Female 9:19 AM CDT Gender Identity Not on file Sexual Orientation Not on file Last Filed Vital Signs Vital Sign Reading Time Taken Comments Blood Pressure 145/88 12/15/2019 8:12 AM SALES MANAGER [place] Pulse 73 12/15/2019 8:12 AM SALES MANAGER [place] Temperature 36.6 C (97.8 F) 12/15/2019 8:12 AM SALES MANAGER [place] Respiratory Rate - - Oxygen Saturation - - Inhaled Oxygen Concentration - - Weight 55.2 kg (121 lb 9.6 oz) 12/15/2019 8:12 A M SALES MANAGER [place] Height 154.2 cm (5' 0.7) 12/15/2019 8:12 AM SALES MANAGER [place] Body Mass Index 23.2 12/15/2019 8:12 AM SALES MANAGER [place] Plan of Treatment Not on file Insurance MEDICARE [facility] Care Teams Privacy Manager Relationship Specialty Start Date End Date Blanca Ruff PA PCP - General Physician Pipe Straightener 07/25/18
[2024-08-11 21:17] VITALS: PULSE 42; RESP 20; TEMP 36.4; O2SAT 100
--- NOTE | 2024-08-11 21:22 | ECG_ITS ---
Test Date: 2024-08-11 21:26:34 Measurements Intervals [place] Rate: 41 P: 0 MO: 0 QRS: -36 QRSD: 129 T: -14 QT: 479 QTc: 398 Interpretive Statements SINUS RHYTHM ALTERNATES WITH IDIOVENTRICULAR ESCAPE RHYTHM ABNORMAL ECG No previous ECG available for comparison Electronically Signed On 08-12-2024 12:44:04 CDT by Lele Chappell M.D.
[2024-08-11 21:26] VITALS: BP 198/104
--- OUTSIDE RECORDS SUMMARY | 2024-08-11 22:11 | XMS_ITS | Clinical Summary ---
Author Organization [facility] Address [address] [place] [id number] Care Team Providers Care Pleating Machine Operator Name Role Phone Blanca Ruff Primary Care Provider +1- [phone] Allergies Active Allergy Reactions Criticality Noted Date [...] Comments Blood Pressure 145/88 12/15/2019 8:12 AM PROPELLER MECHANIC Pulse 73 12/15/2019 8:12 AM PROPELLER MECHANIC Temperature 36.6 C (97.8 F) 12/15/2019 8:12 AM PROPELLER MECHANIC Respiratory Rate - - Oxygen Saturation - - Inhaled Oxygen Concentration - - Weight 55.2 kg (121 lb 9.6 oz) 12/15/2019 8:12 A M PROPELLER MECHANIC Height 154.2 cm (5' 0.7) 12/15/2019 8:12 AM PROPELLER MECHANIC Body Mass Index 23.2 12/15/2019 8:12 AM PROPELLER MECHANIC Plan of Treatment Not [place] [address] [facility] Care Teams Pleating Machine Operator Relationship Specialty Start Date End Date Blanca Ruff PA PCP - General Physician Long Term Care Pharmacist 07/25/18
--- OUTSIDE RECORDS SUMMARY | 2024-08-11 22:11 | XMS_ITS | Referral Summary ---
Author Organization [facility] Address [address] [place] [id number] Care Team Providers Care Landscape Crew Leader Name Role Phone Blanca Ruff Primary Care Provider +1- [phone] Allergies Active Allergy Reactions Criticality Noted Date [...] Comments Blood Pressure 145/88 12/15/2019 8:12 AM MACHINE TOOL TECHNOLOGY INSTRUCTOR Pulse 73 12/15/2019 8:12 AM MACHINE TOOL TECHNOLOGY INSTRUCTOR Temperature 36.6 C (97.8 F) 12/15/2019 8:12 AM MACHINE TOOL TECHNOLOGY INSTRUCTOR Respiratory Rate - - Oxygen Saturation - - Inhaled Oxygen Concentration - - Weight 55.2 kg (121 lb 9.6 oz) 12/15/2019 8:12 A M MACHINE TOOL TECHNOLOGY INSTRUCTOR Height 154.2 cm (5' 0.7) 12/15/2019 8:12 AM MACHINE TOOL TECHNOLOGY INSTRUCTOR Body Mass Index 23.2 12/15/2019 8:12 AM MACHINE TOOL TECHNOLOGY INSTRUCTOR Plan of Treatment Not on file Insurance MEDICARE [facility] Care Teams Landscape Crew Leader Relationship Specialty Start Date End Date Blanca Ruff PA PCP - General Physician Sports Book Server 07/25/18
--- NOTE | 2024-08-11 22:33 | ED_ITS ---
HPI - Extremity Problem General Chief complaint: Extremity Problem,Nontraumatic Stated complaint: left leg pain Time Seen by Provider: 08/11/24 22:03 Source: patient and family Mode of arrival: ambulatory Limitations: no limitations History of Present Illness HPI Narrative: Patient presents with report of right posterior leg pain (of note, triage note states left but it is the right). She started developing this calf pain and describes it as a burning sensation that feels deep. Denies any injury or trauma. No history of VTE. Not on anticoagulation. She has been nauseated. Did note a bruise on this leg although not in the area where she is experiencing her pain. She was concern for possible shingles given how intense it felt versus possibly a bug bite and for this reason she had applied cortisone cream but with no change. She denies any chest pain or shortness of breath. Denies any vision changes although redness had been appreciated in her left eye. She has occasionally had a cough.. Reports a history of a hole in her heart being fixed when she was 15 years old. Related Data Home Medications ?Medication ?Instructions ?Recorded ?Confirmed ?Last Taken ?Type oxybutynin chloride 5 mg 10 mg PO DAILY 01/02/19 12/09/23 05/09/20 05:00 History tablet,extended release 24 hr (Ditropan XL) Allergies Allergy/AdvReac Type Severity Reaction Status Date / Time Penicillins Allergy Unknown Rash Verified 08/11/24 21:17 [facility] Past Medical History Medical History Decreased ROM of left shoulder Shoulder arthralgia Shoulder pain Rotator cuff injury Acute bronchitis Menopause Vitamin D deficiency Osteoporosis Hyperlipidemia, unspecified OAB (overactive bladder) 10/09/2018 Surgical History Surgical History H/O heart surgery 15yo (hole in heart fixed?) Family History Family History Father Carcinoma of colon Mother Family history of malignant neoplasm of breast in first degree relative Social History Social History Social History: Caffeine- coffee daily Smoking status: Never smoker Second hand tobacco smoke exposure: No Alcohol intake: former Alcohol use details: 2 beers consumed weekly Substance use: never Substance use type: does not use Lack of Transportation: No Lack of Food: Never True Current Housing: I Have Housing Concerned About Future Housing: No Difficulty Paying Gas/Electric Bills: No Difficulty Paying for Meds: No Currently Unemployed: No Education: High School Diploma/GED Difficulty w/ Childcare or Family Care: No Living arrangements: with family Occupation/Education: retired Gender identity (if verbalized by the patient): Female Sexual Orientation (if Verbalized by the Patient): Straight or Heterosexual Spiritual care concerns: No Agree to blood products: Yes Exam 2 Narrative: GENERAL: Well-appearing, well-nourished, and in no acute distress. HEAD: Normocephalic, atraumatic. EYES: non icteric; patient has a subconjunctival hemorrhage along the medial aspect of her left eye. PERRL. EOMI. ENT: Nares clear, no rhinorrhea or epistaxis. Gross auditory acuity intact. NECK: Supple. No meningismus. CHEST: Speaking in full sentences. No respiratory distress. HEART: Bradycardic rate and rhythm. . ABDOMEN: Soft, nondistended. EXTREMITIES: Normal range of motion. No lower extremity edema. Mild tenderness to palpation along posterolateral aspect right calf. Small area of ecchymosis along posterior/medial aspect, not where pain is located. Compartments soft. SKIN: Warm, dry. NEURO: No focal deficits. Alert and oriented. Answering questions. Following commands. Normal speech without aphasia or dysarthria. PSYCH: Normal mood and affect. Course Vital Signs Vital signs: Vital Signs Temperature 97.6 F 08/11/24 21:17 Pulse Rate 42 L 08/11/24 21:17 Respiratory Rate 20 08/11/24 21:17 Pulse Oximetry 100 08/11/24 21:17 Oxygen Delivery Room Air 08/11/24 21:17 Temperature 97.6 F 08/12/24 01:08 Pulse Rate 41 L 08/12/24 01:08 Respiratory Rate 18 08/12/24 01:08 Blood Pressure 134/63 08/12/24 01:08 Pulse Oximetry 98 08/12/24 01:08 Oxygen Delivery Room Air 08/11/24 21:17 MDM - Extremity (Nontraumatic) MDM Narrative Medical decision making narrative: Patient presents with report of pain in her right posterior lateral calf. She describes it as a burning deep sensation. No known injury or trauma. Patient has a heart rate of 42. Other vital signs note hypertension but she is otherwise afebrile and hemodynamically stable. Pulse 65 at most recent clinic visit in 2023. Based on her new EKG, I did consult Dr Quan, special forces officer who was unable to determine the rhythm, did not think it was slow afib. Mild abnormalities on CBC with the differential but otherwise without leukocytosis, anemia, thrombocytopenia. She has evidence of urinary tract infection. No prior culture to guide therapy. Patient given 1st dose of Bactrim and rest of course prescribed. We discussed her workup and that no clear etiology for her leg pain has been identified. Discussed the need for follow-up with her primary care physician especially if not improving. Had not been taking anything for pain so advised and will prescribe of analgesics. Will give 1 time dose of [place] upon discharge and she confirms that her is driving. Discussed the benign nature of subconjunctival hemorrhage. She does not have a special forces officer so noted that she should follow up with cardiology immediately given the slow heart rate and will provide referral. Patient thought she might have urinary tract infections was not surprised. Differential Diagnosis Differential diagnosis: Likely herpes zoster, cellulitis, superficial thrombophlebitis, deep vein thrombosis of lower extremity and other (Symptomatic anemia, rhabdomyolysis, muscle cramp, electrolyte abnormalities) Lab Data Attestation: I reviewed the patient's lab results. 08/11/24 23:26 08/11/24 23:26 Labs: Lab Results 08/11/24 08/12/24 Range/Units 23:26 00:04 WBC 6.0 (4.5-10.0) K/mm3 RBC 4.46 (4.2-5.4) M/mm3 Hgb 12.5 (12.0-15.0) g/dL Hct 39.6 (37.0-47.0) % MCV 88.8 (80-100) fl MCH 28.0 (26-34) pg MCHC 31.6 L (32-36) g/dl RDW 13.4 (11.5-14.5) % Plt Count 146 L (150-375) k/mm3 MPV 11.5 H (7.4-10.4) fl Immature Gran % (Auto) 0.2 (0-0.5) % Neut % (Auto) 81.4 H (45.5-73.1) % Lymph % (Auto) 11.4 L (18.3-44.2) % [place] % (Auto) 5.9 (2.6-8.5) % Eos % (Auto) 0.8 (0-4.4) % Baso % (Auto) 0.3 (0.2-1.2) % Lymph # (Auto) 0.68 L (0.9-3.2) K/mm3 [place] # (Auto) 0.4 (0.1-0.6) K/mm3 Eos # (Auto) 0.1 (0-0.3) K/mm3 Baso # (Auto) 0.0 (0.0-0.1) K/mm3 Abs Immat Gran (auto) 0.01 (0.00-0.031) K/mm3 Absolute Neuts (auto) 4.9 (1.3-6.7) K/mm3 Absolute Nucleated RBC 0.000 (0.0-0.012) K/mm3 Nucleated RBC % 0.0 (0.0-0.2) % PT 13.4 (11.1-14.7) Seconds INR 1.0 APTT 31.6 (22.3-36.8) Seconds Sodium 139 (137-145) mmol/L Potassium 4.9 (3.4-5.0) mmol/L Chloride 108 H (98-107) mmol/L Carbon Dioxide 25 (22-30) mmol/L Anion Gap 6 (4-12) mmol/L BUN 23 H (7-17) mg/dL Creatinine 0.74 (0.7-1.0) mg/dL Estim Creat Clear Calc 46 ml/min Estimated GFR > 60 (59 - ) Glucose 112 H (65-110) mg/dL Calcium 9.8 (8.4-10.2) mg/dL Magnesium 2.1 (1.6-2.3) mg/dL Total Creatine Kinase 101 (30-135) U/L TSH 1.940 (0.465-4.680) uIU/mL Urine Color Yellow (Yellow) Urine Appearance Cloudy H (Clear) Urine pH 5.5 (5.0-9.0) Ur Specific [place] 1.007 (1.001-1.035) Urine Protein Negative (Negative) mg/dL Urine Glucose (UA) Negative (Negative) mg/dL Urine Ketones Negative (Negative) mg/dL Ur Blood (Man) Negative (Negative) Urine Nitrate Negative (Negative) Urine Bilirubin Negative (Negative) Urine Urobilinogen 0.2 (<2.0) mg/dL Leukocyte Esterase Rfl 2+ H (Negative) DEZ/UL Urine RBC 0-2 (0-2) /hpf Urine WBC 21-50 H (0-3) /hpf Ur Squamous Epith Cells None seen (Few) /hpf Urine Bacteria 2+ H /hpf Urine Casts 0-2 Imaging Data Radiologist's impression: Impressions Venous Doppler Study 08/11/24 23:09 IMPRESSION: Negative right lower extremity venous US. No deep vein thrombosis. ECG Data EKG #1: Attestation EKG: I personally reviewed and interpreted this ECG as follows: ECG completion date: 08/11/24 ECG completion time: 21:26 Prior ECG tracings: available for review (05/18/22) Interpretation: Patient has abnormal rhythm at a rate of 41 beats per minute. QRS 129. QT/QTC 479/416. No appreciable P-waves to suggest a complete heart block. Given QRS duration is wide (>120), less likely to be junctional although this was considered. The slightly widened QRS complex with suggest more of a interventricular conduction delay such as bundle branch. Left axis deviation (QRS is positive with dominant R wave in Lead I; QRS is negative with dominant S wave in leads II, III, and aVF). T-wave inversion in 3 and AVF. Biphasic T-wave in V6. The irregularly irregular complexes suggests atrial fibrillation eg slow afib. Patient's previous EKG from May 2022 does show a right bundle-branch block with left anterior fascicular block (rS complexes in leads II, III, aVF (small R waves, deep S waves), qR complexes in lead I , avL (small Q waves and tall R waves) and left axis deviation with Leads II, III and aVF negative and leads I and aVL positive. It was labeled as an uncertain rhythm but there did appear to be P-waves on this. Discharge Plan Discharge Clinical Impression: Non-traumatic subconjunctival hemorrhage of left eye, Right calf pain, Asymptomatic bradycardia, UTI (urinary tract infection) Patient Disposition: Home Condition: Stable Instructions: Antibiotic Form, Bradycardia (ED), Leg Pain (ED), Urinary Tract Infection in Older Adults (ED) Additional Instructions: You received your 1st dose of antibiotic in the emergency department the rest of the course has been prescribed for your UTI. Acetaminophen/Tylenol (maximum 4000 mg per day) is safe to take with NSAIDs (ibuprofen/Motrin) for pain relief. Follow-up with your primary care physician. Call in the morning for a cardiology appointment to follow up given your slow heart rate. Patient Language: Irish Prescriptions: New sulfamethoxazole-trimethoprim [Bactrim DS] 800-160 mg tablet 1 tablet PO Q12H 5 Days Qty: 9 0RF Rx Instructions: received first dose in ED acetaminophen 650 mg tablet extended release 650 mg PO Q8H PRN (Reason: pain) Qty: 30 0RF ibuprofen 600 mg tablet 600 mg PO TID PRN (Reason: pain) Qty: 30 0RF No Action oxybutynin chloride [Ditropan XL] 5 mg tablet extended release 24hr 10 mg PO DAILY alendronate 70 mg tablet 70 mg PO WEEKLY Qty: 12 1RF lisinopril 20 mg tablet 40 mg PO DAILY Qty: 180 1RF Follow-up/Referrals: Marion Ann DO [Physician] - (cardiology) Lyubov Flores APRN [Primary Care Provider] - Time of Disposition: 00:58
--- NOTE | 2024-08-11 22:42 | PC.NURSE ---
ultra sound at bedside
[2024-08-11] MEDS: ONDANSETRON HCL ODT 4 MG TABLET PO (23:14)
[2024-08-11 23:19] VITALS: BP 151/62; PULSE 40; RESP 15; O2SAT 96
[2024-08-11 23:33] LABS: Hematocrit 39.6 % (37.0-47.0); Hemoglobin 12.5 g/dL (12.0-15.0); Immature Granulocyte Percent A 0.2 % (0-0.5); Lymphocytes Absolute Auto 0.68 K/mm3 (0.9-3.2); Mean Corpuscular HGB Conc 31.6 g/dl (32-36); Mean Corpuscular Hemoglobin 28.0 pg (26-34); Mean Corpuscular Volume 88.8 fl (80-100); Nucleated Red Blood Cells Absolute Auto 0.000 K/mm3 (0.0-0.012); Nucleated Red Blood Cells Perc 0.0 % (0.0-0.2); Platelet Count Result 146 k/mm3 (150-375); Red Blood Count 4.46 M/mm3 (4.2-5.4); White Blood Count 6.0 K/mm3 (4.5-10.0)
[2024-08-11 23:42] LABS: INR 1.0; Prothrombin Time 13.4 Seconds (11.1-14.7)
[2024-08-11 23:43] LABS: Partial Thromboplastin Time 31.6 Seconds (22.3-36.8)
[2024-08-12 00:11] LABS: Anion Gap 6 mmol/L (4-12); Blood Urea Nitrogen 23 mg/dL (7-17); Calcium 9.8 mg/dL (8.4-10.2); Carbon Dioxide 25 mmol/L (22-30); Chloride 108 mmol/L (98-107); Creatine Kinase 101 U/L (30-135); Estimated CRCL calculation 46 ml/min; Estimated Glomerular Filt Rate > 60; Glucose 112 mg/dL (65-110); Magnesium 2.1 mg/dL (1.6-2.3); Potassium 4.9 mmol/L (3.4-5.0); Sodium 139 mmol/L (137-145)
[2024-08-12 00:13] LABS: Thyroid Stimulating Hormone 1.940 uIU/mL (0.465-4.680)
[2024-08-12 00:23] LABS: Add Urine Microscopic? YES; Appearance Urine Cloudy (Clear); Glucose Urine UA Negative (Negative); Leukocyte Esterase Ur 2+ LEU/UL (Negative); Nitrate Urine Negative (Negative); Non Pathogenic Casts 0-2; Specific Grav Ur 1.007 (1.001-1.035)
[2024-08-12 00:27] VITALS: BP 107/59; PULSE 79; RESP 16; TEMP 36.5; O2SAT 98
[2024-08-12] MEDS: SULFAMETHOXAZOLE/TRIMETHOPRIM 800/160 MG DS TABLET 1 TAB PO (00:48)
[2024-08-12] MEDS: HYDROcodone/acetaminophen (*CRX) 5-325 MG TABLET 1 TAB PO (00:48)
[2024-08-12 01:08] VITALS: BP 134/63; PULSE 41; RESP 18; TEMP 36.4; O2SAT 98
== END 2024-08-12 01:09 | disposition home or self-care (01) ==
PROVIDERS: Emergency Provider Student in an Organized Health Care Education/Training Program; PCP Nurse Practitioner Adult Health
DX: N39.0 Urinary tract infection, site not specified (principal); H11.32 Conjunctival hemorrhage, left eye; R00.1 Bradycardia, unspecified; M79.661 Pain in right lower leg; E55.9 Vitamin D deficiency, unspecified; E78.5 Hyperlipidemia, unspecified; M81.0 Age-related osteoporosis without current pathological fracture; N32.81 Overactive bladder; Z79.899 Other long term (current) drug therapy; R94.31 Abnormal electrocardiogram [ECG] [EKG]
CPT/HCPCS: 36415; 80048; 81001; 82550; 83735; 84443; 85025; 85610; 85730; 87086; 93005; 93971; 99284; A9270